=== PATIENT | male | born 1975 | race Caucasian/White ===

== ENCOUNTER 2017-02-26 21:17 | Emergency (ER) | payer SELFPAY ==
[~2017-02-26] VITALS: Ht 182.9 cm; Wt 90.9 kg
[2017-02-26 21:19] VITALS: TEMP 99
[2017-02-26 22:01] VITALS: BP 151/110; PULSE 106
== END 2017-02-27 00:16 | disposition home or self-care (01) ==
LOC: COL.ER 21:17
DX: M79.672 Pain in left foot (principal); M10.9 Gout, unspecified; I10 Essential (primary) hypertension; F17.210 Nicotine dependence, cigarettes, uncomplicated; X50.3XXA Overexertion from repetitive movements, initial encounter
CPT/HCPCS: J1885